=== PATIENT | female | born 2000 | race Caucasian/White ===

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

== ENCOUNTER 2018-05-01 15:30 | Emergency (ER) | payer OTHER ==
[2018-05-01 16:51] LABS: KETONE, URINE AUTO RFX NEGATIVE (NEGATIVE); MUCUS, URINE RFX SMALL (NEGATIVE); NITRITE, URINE AUTO RFX NEGATIVE (NEGATIVE); RBC, URINE AUTO RFX 2 /HPF (0-3); SPECIFIC GRAVITY UR AUTO RFX 1.008 (1.002-1.035); SQUAM EPITHELIAL CELL UR AURFX 13 /HPF (0-6); WBC, URINE AUTO RFX 7 /HPF (0-3)
[2018-05-01 16:54] LABS: LEUKOCYTE ESTERASE UR AUTO RFX 1+ (NEGATIVE)
== END 2018-05-01 17:37 | disposition left against medical advice (07) ==
LOC: M ED 15:30
DX: Z53.29 Procedure and treatment not carried out because of patient's decision for other reasons (principal)

== ENCOUNTER 2018-06-02 08:30 | Emergency (ER) | payer OTHER ==
[2018-06-02] MEDS: ALBUTEROL SULFATE 2.5 MG/0.5 ML INH NEB SOLN INH (09:28)
== END 2018-06-02 10:07 | disposition home or self-care (01) ==
LOC: M ED 08:30
DX: J06.9 Acute upper respiratory infection, unspecified (principal); R05 Cough; J45.909 Unspecified asthma, uncomplicated; F17.200 Nicotine dependence, unspecified, uncomplicated; Z88.0 Allergy status to penicillin; Z79.899 Other long term (current) drug therapy
CPT/HCPCS: 94640

== ENCOUNTER 2018-06-21 10:14 | Emergency (ER) | payer OTHER ==
[2018-06-21 11:13] LABS: KETONE, URINE AUTO RFX TRACE mg/dL (NEGATIVE); LEUKOCYTE ESTERASE UR AUTO RFX 2+ (NEGATIVE); MUCUS, URINE RFX LARGE (NEGATIVE); NITRITE, URINE AUTO RFX NEGATIVE (NEGATIVE); RBC, URINE AUTO RFX 6 /HPF (0-3); SPECIFIC GRAVITY UR AUTO RFX 1.023 (1.002-1.035); SQUAM EPITHELIAL CELL UR AURFX 35 /HPF (0-6); WBC, URINE AUTO RFX 15 /HPF (0-3)
== END 2018-06-21 12:23 | disposition home or self-care (01) ==
LOC: M ED 10:14
DX: N30.90 Cystitis, unspecified without hematuria (principal); J45.909 Unspecified asthma, uncomplicated; Z97.5 Presence of (intrauterine) contraceptive device; Z88.0 Allergy status to penicillin; F17.210 Nicotine dependence, cigarettes, uncomplicated
CPT/HCPCS: 76856

== ENCOUNTER → 2019-07-02 | Outpatient (CLI) | payer OTHER ==
[~2019-07-02] MED LIST changes: +ALBU17IN2 INH; +BACT800T5 PO; +BANO25CA PO; +BENZ200C70 PO; +HYDR-3715 PO; +IBUP-1022 PO; +MIRE1IUD IU; +MUCI600T37 PO; -NORCOTAB PO
--- NOTE | 2019-07-02 19:24 | REP ---
Focused right breast sonography: History: Unspecified lump in the right breast. The exam order says "upper inner quadrant" . The patient reports that the palpable abnormality is superolateral quadrant right breast. Sonographic findings: Right breast is scanned from 9 o'clock to 11 o'clock in the patient stated area of the lump. Heterogeneous fibroglandular background echotexture is seen. No cyst, mass, or acoustic shadowing is seen. Impression: BIRADS category one negative focused right breast sonography, upper outer quadrant scanning as directed by the patient. This should be correlated with the patient's clinician breast exam. Clinical follow-up is advised. Electronically Signed by Darrel Corado MD 07/02/2019 07:59 P
== END ==
LOC: M RAD 12:55
PROVIDERS: ATTEND Nurse Practitioner Family
DX: Z86.018 Personal history of other benign neoplasm (principal)

== ENCOUNTER 2020-01-20 14:23 | Day surgery (SDC) | payer MEDICAID, OTHER, SELFPAY ==
[~2020-01-20] VITALS: Ht 154.9 cm; Wt 52.3 kg
[~2020-01-20 14:23] MED LIST changes: -ALBU17IN2 INH; +PROV108A INH
[2020-01-20] MEDS ORDERED: MIRE1IUD IU (14:34)
[2020-01-20] MEDS ORDERED: NS 1,000 ML IV ONE (14:45)
[2020-01-20 15:10] LABS: BASO % 0.3 % (0.0-1.0); EOS # 0.1 10^3/uL (0.0-0.5); EOS % 0.6 % (0.0-3.0); HEMATOCRIT 46.3 % (36.0-47.0); HEMOGLOBIN 15.5 g/dl (12.0-15.5); LYMPH # 2.7 10^3/uL (1.5-5.0); LYMPH % 20.6 % (24.0-44.0); MEAN CORPUSCULAR HEMOGLOBIN 29.7 pg (27.0-33.0); MEAN CORPUSCULAR HGB CONC 33.5 g/dl (32.0-36.5); MEAN CORPUSCULAR VOLUME 88.7 fl (80.0-96.0); MONO # 0.7 10^3/uL (0.0-0.8); MONO % 4.9 % (0.0-5.0); NEUTROPHILS # 9.6 10^3/uL (1.5-8.5); NEUTROPHILS % 73.3 % (36.0-66.0); PLATELET COUNT, AUTOMATED 315 10^3/uL (150-450); RED BLOOD COUNT 5.22 10^6/uL (4.00-5.40); WHITE BLOOD COUNT 13.2 10^3/uL (4.0-10.0)
[2020-01-20] MEDS ORDERED: KETOROLAC 30 MG/ML VIAL (J1885) IV ONE (15:30)
[2020-01-20 15:32] LABS: ALBUMIN 4.3 GM/DL (3.2-5.2); BILIRUBIN,DIRECT 0.1 MG/DL (0.0-0.2); BILIRUBIN,TOTAL 0.4 MG/DL (0.2-1.0); TOTAL PROTEIN 7.8 GM/DL (6.4-8.2)
[2020-01-20] MEDS ORDERED: ISOVUE-370 76% 100ML VIAL (Q9967) As Ordered ONE (15:52)
[2020-01-20] MEDS ORDERED: metroNIDAZOLE 500 MG in IV 1 EA IV ONE (16:45)
[2020-01-20] MEDS ORDERED: cefTRIAXone SOD 1 GM in D5W MINI-BAG PLUS 50 ML IV ONE (16:45)
[2020-01-20] MEDS ORDERED: KCL 10MEQ/100ML SWI (KRUN) 10 MEQ in IV 1 EA IV ONE ×2 (17:00→18:00)
[2020-01-20] MEDS ORDERED: BUPIVACAINE/EPIN 0.25% 30 ML VIAL As Ordered ONE (18:01)
[2020-01-20] MEDS ORDERED: fentaNYL 250 MCG/5 ML INJECTION (J3010) As Ordered ONE (18:33)
[2020-01-20] MEDS ORDERED: ROCURONIUM BROMIDE 50 MG/5 ML VIAL As Ordered ONE (18:33)
[2020-01-20] MEDS ORDERED: MIDAZOLAM INJ 2 MG/2 ML VIAL (J2250) As Ordered ONE (18:33)
[2020-01-20] MEDS ORDERED: dexameTHASONE 4 MG/ML 1ML VIAL (J1100) As Ordered ONE (18:33)
[2020-01-20] MEDS ORDERED: propofoL 200 MG/20 ML VIAL As Ordered ONE (18:33)
[2020-01-20] MEDS ORDERED: ONDANSETRON 4MG/2ML VIAL (J2405) As Ordered ONE (18:33)
[2020-01-20] MEDS ORDERED: KETOROLAC 60 MG/2 ML VIAL (J1885) As Ordered ONE (18:33)
[2020-01-20] MEDS ORDERED: LIDOCAINE 2% INJ 100 MG/5 ML SDV (FOR ANES.) As Ordered ONE (18:33)
[2020-01-20] MEDS ORDERED: SUGAMMADEX SODIUM 500 MG/5 ML VIAL (BRIDION) As Ordered ONE (18:45)
[2020-01-20] MEDS ORDERED: ALBUTEROL 6.7GM INHALER **FOR ANES. CART/OMNICELL ONLY As Ordered ONE (18:49)
[2020-01-20] MEDS ORDERED: D5W/LR 1,000 ML IV SCH (19:12)
[2020-01-20] MEDS ORDERED: KETOROLAC 30 MG/ML VIAL (J1885) IV PRN (19:15)
[2020-01-20] MEDS ORDERED: MORPHINE 2 MG/ML 1ML VIAL (J2270) IV PRN ×2 (19:15)
[2020-01-20] MEDS ORDERED: NORCO, ANEXSIA 5/325MG TABLET (HYDROcodone/ACETAMINOPHEN) PO PRN (19:15)
[2020-01-20] MEDS ORDERED: ONDANSETRON 4MG/2ML VIAL (J2405) IV PRN (19:45)
[2020-01-20] MEDS ORDERED: LR 1,000 ML IV SCH (19:45)
[2020-01-20] MEDS ORDERED: fentaNYL 100 MCG/2 ML INJECTION (J3010) IV PRN (19:45)
[2020-01-20 20:00] VITALS: BP 117/77
[2020-01-20 20:30] VITALS: BP 103/65
[2020-01-20 21:00] VITALS: BP 103/61
[2020-01-20 22:00] VITALS: BP 103/62
[2020-01-20 23:00] VITALS: BP 123/72
[2020-01-20] MEDS: NORCO, ANEXSIA 5/325MG TABLET (HYDROcodone/ACETAMINOPHEN) PO PRN (23:15)
[2020-01-21] VITALS: BP 106/64
[2020-01-21 01:00] VITALS: BP 108/60
[2020-01-21 04:10] VITALS: BP 101/55
[2020-01-21] MEDS: NORCO, ANEXSIA 5/325MG TABLET (HYDROcodone/ACETAMINOPHEN) PO PRN (05:16)
--- NOTE | 2020-01-21 07:45 | REP ---
CT ABDOMEN AND PELVIS WITH CONTRAST: TECHNIQUE: Axial contrast enhanced images from the lung bases to the pubic symphysis using 100 mL Isovue 370 intravenous contrast material with multiplanar reformations. Visualized lung bases are clear. The liver, spleen, adrenals, pancreas and kidneys are normal in appearance. There is no hydronephrosis. There is no abdominal aortic aneurysm. A couple of mildly prominent mesenteric lymph nodes are seen in right lower quadrant mesentery. No free air or fluid collection is seen. The appendix is diffusely thickened with mucosal enhancement and periappendiceal inflammatory stranding. Findings are consistent with appendicitis. No pelvic mass is seen. IUD is seen in the ureters. Urinary bladder is unremarkable. IMPRESSION: Findings compatible with appendicitis. No free air or free fluid collection. Electronically Signed by Pradip Estrada MD 01/21/2020 12:03 P
[2020-01-21 08:00] VITALS: BP 105/57
[2020-01-21] MEDS ORDERED: cefTRIAXone SOD 1 GM in D5W MINI-BAG PLUS 50 ML IV SCH (17:00)
== END 2020-01-21 11:30 | disposition home or self-care (01) ==
LOC: M ED 14:23 → M SDC 17:40 → M PED 17:41 → ENRESERVTM 18:50 → ENRESERVDT 18:50 → M SDC 01-21 11:30
PROVIDERS: ATTEND Surgery
DX: K35.890 Other acute appendicitis without perforation or gangrene (principal); J45.909 Unspecified asthma, uncomplicated; Z88.0 Allergy status to penicillin; F17.218 Nicotine dependence, cigarettes, with other nicotine-induced disorders
CPT/HCPCS: 44970; 74177; 80047; 80076; 81001; 83605; 83690; 84702; 85025; 87086; 88304; 96361; 96365; 96375; 96376; 99284; J0696; J1100; J1885; J2250; J2405; J3010; Q9967

== ENCOUNTER 2020-05-17 11:29 | Emergency (ER) | payer MEDICAID, OTHER, SELFPAY ==
[~2020-05-17] VITALS: Ht 154.9 cm; Wt 53.6 kg
[2020-05-17 11:30] VITALS: BP 115/81
[2020-05-17] MEDS ORDERED: ONDANSETRON 4MG/2ML VIAL IV ONE (12:00)
[2020-05-17] MEDS ORDERED: KETOROLAC 30 MG/ML 1ML VIAL IV ONE (12:00)
[2020-05-17 12:27] LABS: BASO % 0.6 % (0.0-1.0); EOS # 0.1 10^3/uL (0.0-0.5); EOS % 1.3 % (0.0-3.0); HEMATOCRIT 43.6 % (36.0-47.0); HEMOGLOBIN 14.5 g/dl (12.0-15.5); LYMPH # 2.3 10^3/uL (1.5-5.0); LYMPH % 32.3 % (24.0-44.0); MEAN CORPUSCULAR HEMOGLOBIN 29.7 pg (27.0-33.0); MEAN CORPUSCULAR HGB CONC 33.3 g/dl (32.0-36.5); MEAN CORPUSCULAR VOLUME 89.2 fl (80.0-96.0); MONO # 0.5 10^3/uL (0.0-0.8); MONO % 6.4 % (0.0-5.0); NEUTROPHILS # 4.3 10^3/uL (1.5-8.5); NEUTROPHILS % 59.3 % (36.0-66.0); PLATELET COUNT, AUTOMATED 241 10^3/uL (150-450); RED BLOOD COUNT 4.89 10^6/uL (4.00-5.40); WHITE BLOOD COUNT 7.2 10^3/uL (4.0-10.0)
[2020-05-17] MEDS ORDERED: ISOVUE-370 76% 100ML VIAL As Ordered ONE (12:28)
[2020-05-17 12:53] LABS: ALBUMIN 3.9 GM/DL (3.2-5.2); BILIRUBIN,DIRECT 0.1 MG/DL (0.0-0.2); BILIRUBIN,TOTAL 0.4 MG/DL (0.2-1.0); TOTAL PROTEIN 6.8 GM/DL (6.4-8.2)
[2020-05-17] MEDS ORDERED: KETO10TAB PO (13:00)
--- NOTE | 2020-05-17 13:06 | REP ---
Clinical: Lower abdominal pain. Recent appendectomy. Technique: Axial contrast enhanced images from the lung bases to the pubic symphysis using 100 ml Isovue 370 intravenous contrast material with coronal and sagittal re-formations. Comparison: 01/20/2020. Findings: Lung bases are clear. Visualized heart and pericardium normal. Liver, spleen, pancreas, gallbladder, bilateral adrenal glands and kidneys are normal. The enteric system is without obstruction or acute inflammatory process. Evidence for prior appendectomy noted. No free air. No inflammatory stranding. No drainable collection/abscess. Evaluation of the pelvis demonstrates normal bladder and age-appropriate uterus with IUD in satisfactory position. Small amount of free fluid in the pelvis and left adnexal cyst likely related to menstrual cycle and physiologic changes. Impression: 1. Small amount of free fluid in the pelvis along with cystic change to the left adnexa likely related to physiologic change and menstrual cycle, and possibly related to patient's symptoms. 2. Otherwise no acute A/P pathology appreciated. Electronically Signed by Robert Edgar MD 05/17/2020 12:57 P
[2020-06-06] MEDS ORDERED: CLIN150C14 PO (17:23)
[2020-06-06] MEDS ORDERED: TRAM50TA2 PO (18:53)
== END 2020-05-17 13:08 | disposition home or self-care (01) ==
LOC: M ED 11:29
DX: N83.202 Unspecified ovarian cyst, left side (principal); J45.909 Unspecified asthma, uncomplicated; Z97.5 Presence of (intrauterine) contraceptive device; Z88.0 Allergy status to penicillin; F17.210 Nicotine dependence, cigarettes, uncomplicated
CPT/HCPCS: 36415; 74177; 80047; 80076; 81001; 83690; 84702; 85025; 96374; 96375; 99284; J1885; J2405; Q9967

== ENCOUNTER 2020-06-05 09:28 | Emergency (ER) | payer MEDICAID, OTHER ==
[~2020-06-05] VITALS: Ht 154.9 cm; Wt 51.3 kg
[~2020-06-05 09:28] MED LIST changes: +KETO10TAB PO
[2020-06-05] MEDS ORDERED: cefTRIAXone SOD 2 GM VIAL (J0696 PER 250MG) IM ONE (10:00)
[2020-06-05] MEDS ORDERED: LIDOCAINE 1% SDV 5ML VIAL DILUENT ONE (10:00)
[2020-06-05] MEDS ORDERED: CLINDAMYCIN 150MG CAPSULE PO ONE (10:00)
[2020-06-05] MEDS ORDERED: CLIN150C14 PO (10:36)
[2020-06-05 10:47] VITALS: BP 124/73
[2020-06-05] MEDS ORDERED: VENTAER INH (16:55)
[2020-06-06] MEDS ORDERED: CLIN150C14 PO (17:23)
[2020-06-06] MEDS ORDERED: TRAM50TA2 PO (18:53)
== END 2020-06-05 10:53 | disposition home or self-care (01) ==
LOC: M ED 09:28
DX: K04.7 Periapical abscess without sinus (principal); Z88.0 Allergy status to penicillin
CPT/HCPCS: 96372; 99283; J0696

== ENCOUNTER → 2020-09-05 | Outpatient (REF) | payer MEDICAID ==
[~2020-09-05] MED LIST changes: +CLIN150C14 PO; +TRAM50TA2 PO; +VENTAER INH
[2020-09-05 21:31] LABS: APPEARANCE, URINE CLEAR (CLEAR); BACTERIA, URINE AUTO 1+ (NEGATIVE); BILIRUBIN, URINE AUTO NEGATIVE (NEGATIVE); BLOOD, URINE BLOOD NEGATIVE (NEGATIVE); COLOR, URINE STRAW (YELLOW); GLUCOSE, URINE (UA) AUTO NEGATIVE (NEGATIVE); KETONE, URINE AUTO NEGATIVE (NEGATIVE); LEUKOCYTE ESTERASE, URINE AUTO TRACE (NEGATIVE); NITRITE, URINE AUTO NEGATIVE (NEGATIVE); PROTEIN, URINE AUTO NEGATIVE (NEGATIVE); RBC, URINE AUTO 0 /HPF (0-3); SPECIFIC GRAVITY URINE AUTO 1.004 (1.002-1.035); SQUAMOUS EPITHELIAL CELL UR AU 1 /HPF (0-6); UROBILINOGEN, URINE AUTO 0.2 mg/dL (0.0-2.0); WBC, URINE AUTO 1 /HPF (0-3)
== END ==
LOC: M LAB 21:21
PROVIDERS: ATTEND Physician Assistant
DX: N39.0 Urinary tract infection, site not specified (principal)

== ENCOUNTER → 2021-02-23 | Outpatient (REF) | payer OTHER ==
[~2021-02-23] MED LIST changes: -CLIN150C14 PO; +CLIN150C15 PO
[2021-02-27 14:40] LABS: CHLAMYDIA DNA AMPLIFICATION NEGATIVE (NEGATIVE); GC DNA AMPLIFICATION NEGATIVE (NEGATIVE)
== END ==
LOC: M SFHCWAGY 17:02
PROVIDERS: ATTEND Nurse Practitioner Women's Health
DX: Z11.3 Encounter for screening for infections with a predominantly sexual mode of transmission (principal)

== ENCOUNTER 2021-04-08 15:29 | Emergency (ER) | payer OTHER ==
[~2021-04-08] VITALS: Ht 154.9 cm; Wt 49.1 kg
[~2021-04-08 15:29] MED LIST changes: -BANO25CA PO; +DIPH-319 PO
[2021-04-08] MEDS ORDERED: IBUP-1022 PO (19:23)
[2021-04-08] MEDS ORDERED: CYCL-707 PO (19:23)
[2021-04-08 19:30] VITALS: BP 117/68
== END 2021-04-08 19:32 | disposition home or self-care (01) ==
LOC: M ED 15:29
DX: M54.6 Pain in thoracic spine (principal); J45.909 Unspecified asthma, uncomplicated; Z88.0 Allergy status to penicillin; Z90.89 Acquired absence of other organs

== ENCOUNTER → 2021-09-30 | Outpatient (REF) | payer OTHER ==
[~2021-09-30] MED LIST changes: -CLIN150C15 PO; +CLIN150C17 PO; +CYCL-707 PO
[2021-09-30 21:25] LABS: GC DNA AMPLIFICATION NEGATIVE (NEGATIVE)
== END ==
LOC: M SFHCWAGY 16:59
PROVIDERS: ATTEND Advanced Practice Midwife
DX: Z34.91 Encounter for supervision of normal pregnancy, unspecified, first trimester (principal)

== ENCOUNTER → 2021-10-13 | Outpatient (CLI) | payer OTHER ==
--- NOTE | 2021-10-13 10:12 | REP ---
INDICATION: GROWTH COMPARISON: None. TECHNIQUE: Transabdominal obstetrical ultrasound with color Doppler evaluation. FINDINGS: Examination demonstrates a single live intrauterine in variable presentation. motion is identified by technologist. Placenta is noted anterior and grade 0 without evidence for placenta previa or abruption. Amniotic fluid volume is normal. Cervix measures 3.8 cm in length and appears closed.. Gestational age by current measurements 14 weeks 1 day with GIGI 04/12/2022. FHR equals 143 beats per minute. Estimated weight 85th grams (17thpercentile). Limited anatomical assessment demonstrates normal structures. IMPRESSION: Single live intrauterine measuring at 14 weeks 1 day gestational age. Complete anatomical assessment should be performed at 19-20 weeks. <Electronically signed by Robert Edgar > 10/13/21 [id number]
== END ==
LOC: M WHC 08:39
PROVIDERS: ATTEND Advanced Practice Midwife
DX: Z34.81 Encounter for supervision of other normal pregnancy, first trimester (principal)

== ENCOUNTER → 2022-01-12 | Outpatient (CLI) | payer OTHER | LOC: M PLALAB 14:33 | PROVIDERS: ATTEND Obstetrics & Gynecology | DX: Z36.89 Encounter for other specified antenatal screening (principal); Z3A.16 16 weeks gestation of pregnancy ==

== ENCOUNTER → 2022-01-12 | Outpatient (CLI) | payer OTHER ==
[2022-01-12 18:56] LABS: HIV 1&2 SCREEN CENTAUR NEGATIVE (NEGATIVE)
== END ==
LOC: M PLALAB 14:30
PROVIDERS: ATTEND Advanced Practice Midwife
DX: Z34.91 Encounter for supervision of normal pregnancy, unspecified, first trimester (principal)

== ENCOUNTER → 2022-01-12 | Outpatient (CLI) | payer OTHER ==
[2022-01-12 18:19] LABS: HEMATOCRIT 36.4 % (36.0-47.0); MEAN CORPUSCULAR HEMOGLOBIN 30.1 pg (27.0-33.0); MEAN CORPUSCULAR VOLUME 91.2 fl (80.0-96.0); PLATELET COUNT, AUTOMATED 298 10^3/uL (150-450); RED BLOOD COUNT 3.99 10^6/uL (4.00-5.40)
[2022-01-12 20:28] LABS: GC DNA AMPLIFICATION NEGATIVE (NEGATIVE)
== END ==
LOC: M PLALAB 14:36
PROVIDERS: ATTEND Obstetrics & Gynecology
DX: Z34.92 Encounter for supervision of normal pregnancy, unspecified, second trimester (principal)

== ENCOUNTER 2022-04-08 13:27 | Outpatient (CLI) | payer OTHER ==
[~2022-04-08] VITALS: Ht 154.9 cm; Wt 69.1 kg
[2022-04-08 13:40] VITALS: BP 111/70
[2022-04-08] MEDS ORDERED: HOME MED LIST COMPLETE! XX SCH (14:40)
[2022-04-08 16:04] VITALS: BP 110/64
== END 2022-04-08 17:10 | disposition home or self-care (01) ==
LOC: M LDO 13:27
PROVIDERS: ATTEND Specialist
DX: O60.03 Preterm labor without delivery, third trimester (principal); O26.893 Other specified pregnancy related conditions, third trimester; N89.8 Other specified noninflammatory disorders of vagina; Z3A.39 39 weeks gestation of pregnancy

== ENCOUNTER 2022-04-10 13:21 | Inpatient (IN) | payer OTHER ==
[~2022-04-10] VITALS: Ht 154.9 cm; Wt 66.3 kg
[2022-04-10] VITALS (16 sets, daily range): BP systolic 95–127; BP diastolic 50–77
[2022-04-10] MEDS ORDERED: LACTATED RINGER'S 1000 ML IV PRN (13:50)
[2022-04-10] MEDS ORDERED: LR 1,000 ML IV SCH (13:50)
[2022-04-10] MEDS ORDERED: TRANEXAMIC ACID INJection 1,000 MG in NS 100 ML IV PRN (13:50)
[2022-04-10] MEDS ORDERED: METHYLERGONOVINE MALEATE 0.2 MG/ML VIAL (J2210) IM PRN (13:50)
[2022-04-10] MEDS ORDERED: CARBOPROST TROMETHAMINE 250 MCG/ML AMP IM PRN (13:50)
[2022-04-10] MEDS ORDERED: ALBU83IN INH (14:12)
[2022-04-10] MEDS ORDERED: HOME MED LIST COMPLETE! XX SCH (14:15)
[2022-04-10 14:24] LABS: HEMATOCRIT 35.6 % (36.0-47.0); HEMOGLOBIN 12.2 g/dl (12.0-15.5); MEAN CORPUSCULAR HGB CONC 34.3 g/dl (32.0-36.5); MEAN CORPUSCULAR VOLUME 87.5 fl (80.0-96.0); PLATELET COUNT, AUTOMATED 310 10^3/uL (150-450); RED BLOOD COUNT 4.07 10^6/uL (4.00-5.40); WHITE BLOOD COUNT 11.1 10^3/uL (4.0-10.0)
[2022-04-10] MEDS ORDERED: PROMETHAZINE 25MG/ML 1ML VIAL IV ONE (14:30)
[2022-04-10] MEDS ORDERED: BUTORPHANOL 2 MG/ML INJ (J0595) IV ONE (14:30)
[2022-04-10] MEDS ORDERED: OXYTOCIN 30 UNITS IN 0.9% NaCl 500ML IV BAG (J2590) As Ordered ONE ×2 (18:37→23:30)
[2022-04-10] MEDS ORDERED: LIDOCAINE 1% MDV 20ML VIAL As Ordered ONE (20:14)
[2022-04-10] MEDS ORDERED: METHYLERGONOVINE MALEATE 0.2 MG TAB PO PRN (20:40)
[2022-04-10] MEDS ORDERED: OXYTOCIN DRIP 30 UNITS in IV 1 EA IV SCH (20:40)
[2022-04-10] MEDS: LR 1,000 ML IV SCH (20:40)
[2022-04-10] MEDS ORDERED: ACETAMINOPHEN 500 MG TAB PO PRN (20:40)
[2022-04-10] MEDS ORDERED: RHOGAM 300 MCG (1500 IU) INJ (J2790) IM SCH (20:40)
[2022-04-10] MEDS ORDERED: MEASLES,MUMPS,RUBELLA VACCINE INJ (MMR-II) (90707) SC SCH (20:40)
[2022-04-10] MEDS ORDERED: DOCUSATE SODIUM 100MG CAPSULE PO PRN (20:40)
[2022-04-10] MEDS ORDERED: IBUPROFEN 600MG TAB PO PRN (20:40)
[2022-04-10] MEDS ORDERED: DIBUCAINE 1% OINTMENT 30GM TOP PRN (20:40)
[2022-04-10] MEDS ORDERED: MORPHINE 4 MG/ML 1ML VIAL/SYRINGE IV ONE (23:40)
[2022-04-10] MEDS ORDERED: HYDROMORPHONE HCL 0.5 MG/ 0.5 ML SYRINGE (J1170 PER 1) As Ordered ONE (23:40)
[2022-04-11] VITALS (12 sets, daily range): BP systolic 110–134; BP diastolic 55–87
[2022-04-11] MEDS ORDERED: METHYLERGONOVINE MALEATE 0.2 MG/ML VIAL (J2210) IM STA (00:04)
[2022-04-11] MEDS ORDERED: TRANEXAMIC ACID INJection 1,000 MG in D5W 100 ML IV ONE ×2 (00:05→00:30)
[2022-04-11 00:27] LABS: HEMATOCRIT 29.3 % (36.0-47.0); MEAN CORPUSCULAR HEMOGLOBIN 30.6 pg (27.0-33.0); MEAN CORPUSCULAR HGB CONC 33.8 g/dl (32.0-36.5); MEAN CORPUSCULAR VOLUME 90.4 fl (80.0-96.0); PLATELET COUNT, AUTOMATED 260 10^3/uL (150-450); RED BLOOD COUNT 3.24 10^6/uL (4.00-5.40); WHITE BLOOD COUNT 13.3 10^3/uL (4.0-10.0)
[2022-04-11 00:30] LABS: HEMOGLOBIN 9.9 g/dl (12.0-15.5)
[2022-04-11] MEDS ORDERED: ceFAZolin SOD 2 GM in IV 1 EA IV ONE (00:30)
[2022-04-11] MEDS ORDERED: TRANEXAMIC ACID 100 MG/ML 10ML VIAL As Ordered ONE (00:36)
[2022-04-11 00:38] LABS: INR 0.98; PROTHROMBIN TIME 13.4 SECONDS (12.7-14.5)
[2022-04-11] MEDS ORDERED: HYDROMORPHONE HCL 0.5 MG/ 0.5 ML SYRINGE (J1170 PER 1) IV ONE (00:40)
[2022-04-11 00:47] LABS: ALBUMIN 1.9 GM/DL (3.2-5.2); ALT/SGPT 29 U/L (12-78); BILIRUBIN,TOTAL 0.4 MG/DL (0.2-1.0); BLOOD UREA NITROGEN 5 MG/DL (7-18); CALCIUM LEVEL 8.1 MG/DL (8.5-10.1); CARBON DIOXIDE LEVEL 24 MEQ/L (21-32); CHLORIDE LEVEL 111 MEQ/L (98-107); CREATININE FOR GFR 0.74 MG/DL (0.55-1.30); GLOMERULAR FILTRATION RATE > 60.0 (>60); GLUCOSE, FASTING 100 MG/DL (70-100); POTASSIUM SERUM 3.4 MEQ/L (3.5-5.1); SODIUM LEVEL 142 MEQ/L (136-145); TOTAL PROTEIN 4.6 GM/DL (6.4-8.2)
[2022-04-11] MEDS ORDERED: METHYLERGONOVINE MALEATE 0.2 MG/ML VIAL (J2210) IM ONE (02:00)
[2022-04-11] MEDS ORDERED: ALBUTEROL 90 MCG/ACT 8GM HFA INHALER INH PRN (03:55)
[2022-04-11] MEDS ORDERED: PROV108A INH (03:56)
[2022-04-11] MEDS ORDERED: ALBUTEROL SULFATE 2.5 MG/0.5 ML INH NEB SOLN NEB ONE (04:05)
[2022-04-11] MEDS: LR 1,000 ML IV SCH (04:40)
[2022-04-11] MEDS: PRENATAL VITAMINS CHEWABLE TABLET PO SCH (09:34)
[2022-04-11] MEDS ORDERED: LR 1,000 ML IV ONE (09:55)
[2022-04-11 10:43] LABS: HEMATOCRIT 31.1 % (36.0-47.0); HEMOGLOBIN 10.9 g/dl (12.0-15.5); MEAN CORPUSCULAR HEMOGLOBIN 30.4 pg (27.0-33.0); MEAN CORPUSCULAR VOLUME 86.9 fl (80.0-96.0); PLATELET COUNT, AUTOMATED 226 10^3/uL (150-450); RED BLOOD COUNT 3.58 10^6/uL (4.00-5.40); WHITE BLOOD COUNT 12.2 10^3/uL (4.0-10.0)
[2022-04-12 06:00] VITALS: BP 109/72
[2022-04-12] MEDS: PRENATAL VITAMINS CHEWABLE TABLET PO SCH (08:27)
[2022-04-12 09:52] VITALS: BP 134/79
[2022-04-12] MEDS ORDERED: IBUP80TA PO (11:09)
[2022-04-12] MEDS ORDERED: ACET-683 PO (11:09)
== END 2022-04-12 12:58 | disposition home or self-care (01) | DRG 560 ==
LOC: M LDO 13:21 → M LDI 13:45 → M OBS 21:55
PROVIDERS: ADMIT Obstetrics & Gynecology; ATTEND Obstetrics & Gynecology
PROC: 10E0XZZ Delivery of Products of Conception, External Approach (ICD-10-PCS; principal; 2022-04-10)
PROC: 30233N1 Transfusion of Nonautologous Red Blood Cells into Peripheral Vein, Percutaneous Approach (ICD-10-PCS; 2022-04-11)
DX: O32.6XX0 Maternal care for compound presentation, not applicable or unspecified (principal); O72.2 Delayed and secondary postpartum hemorrhage; Z3A.39 39 weeks gestation of pregnancy; Z37.0 Single live birth

== ENCOUNTER → 2022-07-04 | Outpatient (CLI) | payer OTHER ==
[~2022-07-04] MED LIST changes: +ACET-683 PO; +ALBU2.5V10 INH; +IBUP80TA PO
== END ==
LOC: M LABSMTC 11:36
PROVIDERS: ATTEND Anesthesiology
DX: Z01.812 Encounter for preprocedural laboratory examination (principal)

== ENCOUNTER 2022-07-09 07:29 | Day surgery (SDC) | payer OTHER ==
[~2022-07-09] VITALS: Ht 154.9 cm; Wt 60.1 kg
[~2022-07-09 07:29] MED LIST changes: +DEBL1TAB
[2022-07-09] MEDS ORDERED: LR 1,000 ML IV SCH ×2 (07:50→10:55)
[2022-07-09 08:05] LABS: HEMATOCRIT 42.4 % (36.0-47.0); HEMOGLOBIN 13.7 g/dl (12.0-15.5); MEAN CORPUSCULAR HEMOGLOBIN 28.2 pg (27.0-33.0); MEAN CORPUSCULAR HGB CONC 32.3 g/dl (32.0-36.5); MEAN CORPUSCULAR VOLUME 87.4 fl (80.0-96.0); PLATELET COUNT, AUTOMATED 301 10^3/uL (150-450); RED BLOOD COUNT 4.85 10^6/uL (4.00-5.40); WHITE BLOOD COUNT 7.8 10^3/uL (4.0-10.0)
[2022-07-09] MEDS ORDERED: BUPIVACAINE HCL 0.25% 10ML VIAL As Ordered ONE (09:09)
[2022-07-09] MEDS ORDERED: propofoL 200 MG/20 ML VIAL As Ordered ONE (09:32)
[2022-07-09] MEDS ORDERED: dexameTHASONE 4 MG/ML 1ML VIAL (J1100 PER 1MG) As Ordered ONE (09:32)
[2022-07-09] MEDS ORDERED: LIDOCAINE 2% 100MG/5ML SDV (FOR ANES.) As Ordered ONE (09:32)
[2022-07-09] MEDS ORDERED: ROCURONIUM BROMIDE 50 MG/5 ML VIAL As Ordered ONE ×2 (09:32→09:58)
[2022-07-09] MEDS ORDERED: fentaNYL 100 MCG/2 ML INJECTION As Ordered ONE ×2 (09:32→09:34)
[2022-07-09] MEDS ORDERED: METOCLOPRAMIDE INJ 10MG/2ML VIAL (J2765 PER 1) As Ordered ONE (09:32)
[2022-07-09] MEDS ORDERED: ONDANSETRON 4MG 2ML VIAL As Ordered ONE (09:32)
[2022-07-09] MEDS ORDERED: SUGAMMADEX SODIUM 500 MG/5 ML VIAL (BRIDION) As Ordered ONE (09:32)
[2022-07-09] MEDS ORDERED: MIDAZOLAM INJ 2MG/2ML VIAL (J2250 PER 1MG) As Ordered ONE (09:32)
[2022-07-09] MEDS ORDERED: KETOROLAC 60MG 2ML VIAL As Ordered ONE (09:32)
[2022-07-09] MEDS ORDERED: ACETAMINOPHEN 1000MG 100ML IV BTL (OFIRMEV) (J0131 PER 10MG) As Ordered ONE (09:41)
[2022-07-09] MEDS ORDERED: fentaNYL 100 MCG/2 ML INJECTION IV PRN (10:55)
[2022-07-09] MEDS ORDERED: ONDANSETRON 4MG 2ML VIAL IV PRN (10:55)
[2022-07-09] MEDS ORDERED: oxyCODONE 5MG TAB PO PRN (10:55)
[2022-07-09] MEDS ORDERED: HYDROmorphone 2 MG TAB PO PRN (11:10)
[2022-07-09] MEDS ORDERED: ACETAMINOPHEN 500 MG TAB PO PRN (11:10)
[2022-07-09] MEDS: MORPHINE 2 MG/ML 1ML VIAL IV PRN ×2 (11:17→11:22)
[2022-07-09 12:15] VITALS: BP 119/66
== END 2022-07-09 12:36 | disposition home or self-care (01) ==
LOC: M SDC 07:29
PROVIDERS: ATTEND Obstetrics & Gynecology
DX: Z30.2 Encounter for sterilization (principal); Z90.89 Acquired absence of other organs; Z88.0 Allergy status to penicillin; F17.210 Nicotine dependence, cigarettes, uncomplicated
CPT/HCPCS: 36415; 58661; 81025; 85027; 86850; 86900; 86901; 88302; J0131; J1100; J1885; J2250; J2270; J2405; J2765; J3010

== ENCOUNTER 2023-02-14 20:28 | Emergency (ER) | payer OTHER ==
[~2023-02-14] VITALS: Ht 154.9 cm; Wt 59.3 kg
[~2023-02-14 20:28] MED LIST changes: +ALBU6.7H6 INH; -PROV108A INH
[2023-02-15 01:10] VITALS: BP 120/74
== END 2023-02-15 04:06 | disposition left against medical advice (07) ==
LOC: M ED 20:28
DX: Z53.21 Procedure and treatment not carried out due to patient leaving prior to being seen by health care provider (principal)

== ENCOUNTER → 2023-12-05 | Outpatient (REF) ==
[~2023-12-05] MED LIST changes: -DIPH-319 PO; +DIPH-429 PO
== END ==
LOC: M EMP 13:13
PROVIDERS: ATTEND Family Medicine
DX: Z53.9 Procedure and treatment not carried out, unspecified reason (principal)

== ENCOUNTER 2024-02-16 17:43 | Emergency (ER) | payer OTHER ==
[~2024-02-16] VITALS: Ht 154.9 cm; Wt 57.9 kg
[2024-02-16] MEDS ORDERED: ALBU8.5H (17:56)
[2024-02-16 20:56] VITALS: BP 119/70; TEMP 97.8; O2SAT 99
== END 2024-02-16 20:57 | disposition home or self-care (01) ==
LOC: M ED 17:43
DX: S06.0X0A Concussion without loss of consciousness, initial encounter (principal); W22.09XA Striking against other stationary object, initial encounter; J45.909 Unspecified asthma, uncomplicated; Z88.1 Allergy status to other antibiotic agents; Z79.52 Long term (current) use of systemic steroids; Y92.009 Unspecified place in unspecified non-institutional (private) residence as the place of occurrence of the external cause; Y93.9 Activity, unspecified; Y99.9 Unspecified external cause status

== ENCOUNTER → 2024-02-29 | Outpatient (REF) | payer OTHER ==
[~2024-02-29] MED LIST changes: +ALBU8.5H
== END ==
LOC: M SFHCWAGY 10:27
PROVIDERS: ATTEND Nurse Practitioner Family
DX: R10.2 Pelvic and perineal pain (principal); N94.10 Unspecified dyspareunia

== ENCOUNTER → 2024-05-14 | Outpatient (CLI) | payer OTHER | LOC: M WHC 10:29 | PROVIDERS: ATTEND Nurse Practitioner Family | DX: R10.2 Pelvic and perineal pain (principal); N94.10 Unspecified dyspareunia ==

== ENCOUNTER → 2025-07-17 | Outpatient (REF) | payer OTHER, MEDICAID ==
[~2025-07-17] MED LIST changes: -ALBU8.5H; +ALBU8.5H INH; -IBUP-1022 PO; +IBUP600T42 PO; +LAMI25TA PO; +SERT50TA29 PO; +TRAZ-252 PO
[2025-07-17 19:30] LABS: ALT/SGPT 20.0 U/L (7.0-40); AST/SGOT 22.0 U/L (<34); CALCIUM LEVEL 9.7 MG/DL (8.5-10.1); CARBON DIOXIDE LEVEL 27.0 MMOL/L (20-31); CHLORIDE LEVEL 106.0 MMOL/L (98-107); CHOLESTEROL LEVEL 203.0 MG/DL (<200); CHOLESTEROL RISK RATIO 3.29 (<5); CREATININE FOR GFR 0.98 MG/DL (0.55-1.30); GLOMERULAR FILTRATION RATE 81.6 (>60); LDL CHOLESTEROL 126.7 MG/DL (<100); NON-HDL-C 141.3 MG/DL; POTASSIUM SERUM 4.7 MMOL/L (3.5-5.1); SODIUM LEVEL 143.0 MMOL/L (136-145); TOTAL 25(OH) VITAMIN D 21.9 NG/ML (20.0-100.0); TRIGLYCERIDES LEVEL 73.0 MG/DL (<150)
[2025-07-17 19:44] LABS: ESTIMATED AVERAGE GLUCOSE 100.0 MG/DL (60-110)
== END ==
LOC: M LAB REF 16:17
PROVIDERS: ATTEND Student in an Organized Health Care Education/Training Program
DX: E55.9 Vitamin D deficiency, unspecified (principal); Z68.29 Body mass index [BMI] 29.0-29.9, adult

== ENCOUNTER → 2025-09-08 | Outpatient (REF) | payer OTHER, MEDICAID | LOC: M LAB REF 17:31 | PROVIDERS: ATTEND Physician Assistant Medical | DX: B34.9 Viral infection, unspecified (principal) ==

== ENCOUNTER → 2025-09-11 | Outpatient (CLI) | payer OTHER | LOC: M CARPUL 13:08 | PROVIDERS: ATTEND Student in an Organized Health Care Education/Training Program | DX: R06.00 Dyspnea, unspecified (principal) ==